=== PATIENT | male | born 1970 ===

== ENCOUNTER 2017-06-08 09:43 | Emergency (ER) | payer OTHER ==
[~2017-06-08] VITALS: Ht 177.8 cm; Wt 96.2 kg
[~2017-06-08 09:43] MED LIST: ALTACE5 MG PO; PROZAC10 MG PO
[2017-06-08] MEDS ORDERED: DIOVAN40 MG (09:46)
[2017-06-08] MEDS ORDERED: VYTORIN 10-201 EACH (09:47)
[2017-06-08] MEDS ORDERED: KETO10TA2 PO (12:04)
== END 2017-06-08 12:36 | disposition home or self-care (01) ==
LOC: ER 09:43
DX: S93.691A Other sprain of right foot, initial encounter (principal); X50.9XXA Other and unspecified overexertion or strenuous movements or postures, initial encounter; Y93.64 Activity, baseball; Y92.320 Baseball field as the place of occurrence of the external cause; Y99.8 Other external cause status